=== PATIENT | female | born 1945 | race Caucasian/White ===

== ENCOUNTER → 2017-02-04 | Outpatient (CLI) | payer MEDICARE, OTHER ==
--- NOTE | 2017-02-04 11:21 | KCIC ---
MR of the left shoulder Indication: Pain, worsening over the last few months. Progressive. Technique: Standard multiplanar sequences are obtained. Findings: Acromioclavicular joint: Mildly degenerative. Rotator cuff: There is heterogeneity of the rotator cuff compatible with tendinosis. Very deep linear undersurface tear of the supraspinatus tendon, 90 percent across. Measures slightly less than 1 cm AP diameter. There is a thin intact overlying layer of bursal tissue. More generalized partial undersurface tearing of the supraspinatus and infraspinatus tendon. Partial subscapularis tendon tear. No significant subdeltoid bursal fluid. Glenohumeral cartilage: Severe primary osteoarthritis with cartilage loss and subchondral cysts. Fluid: Trace glenohumeral joint effusion. Labrum: Diffuse labral degeneration. No clear cut labral tear. Biceps tendon: Mild tendinosis. Bones: No lesion or acute fracture. Soft tissue: No acute findings. Impression: 1. Rotator cuff tendinosis. Very deep undersurface tear of the anterior supraspinatus tendon, with partial tearing through the remaining rotator cuff. 2. Severe glenohumeral joint primary osteoarthritis with labral degeneration. Electronically signed by: Yovanny Montano MD (02/04/2017 11:18 AM) [id number]
== END | disposition home or self-care (01) ==
LOC: KCIC MRI 08:30
PROVIDERS: ATTEND Physician Assistant Medical
DX: M19.012 Primary osteoarthritis, left shoulder (principal); M75.102 Unspecified rotator cuff tear or rupture of left shoulder, not specified as traumatic
CPT/HCPCS: 73221

== ENCOUNTER → 2017-10-27 | Outpatient (CLI) | payer MEDICARE, OTHER ==
--- NOTE | 2017-10-27 18:08 | KCIC ---
MRI of the lumbar spine without contrast 10/27/2017 CLINICAL HISTORY: Low back pain which radiates down the left leg. History of previous lumbar spine surgery. TECHNIQUE: Unenhanced T1-weighted and T2-weighted sagittal and axial and inversion recovery sagittal images of the lumbar spine were obtained. FINDINGS: Comparison study is dated 07/14/2009. Very mild S-shaped curvature of the thoracolumbar spine is seen. The patient is post laminectomy at L4-5 and L5-S1. The patient is post fusion using pedicle screws and stabilizing rods extending from L4 to S1. Bone graft material is seen within the L4-5 and L5-S1 disc spaces. Degenerative signal changes are seen involving the remaining discs of the lumbar spine. Degenerative signal changes are seen within the marrow surrounding these discs. The conus medullaris is normal in morphology, position, and signal characteristics. The L1-2 and L2-3 disc spaces there are mild generalized disc bulges. Degenerative changes are seen involving the facet joints bilaterally. These findings do not result in significant central spinal canal or neural foraminal stenosis. At the L3-4 disc space there is a mild to moderate generalized disc bulge. Degenerative changes are seen involving the facet joints bilaterally. There are moderate sized facet joint effusions bilaterally. Mild to moderate ligamentum flavum hypertrophy is seen bilaterally. These findings when combined result in moderate to severe central spinal canal stenosis. Mild to moderate bilateral neural foraminal stenosis is seen. At the L4-5 and L5-S1 levels postsurgical changes are seen as outlined above. Degenerative changes are seen involving the facet joints bilaterally. These findings do not result in significant central spinal canal or neural foraminal stenosis. IMPRESSION: 1. Post laminectomy and fusion at L4-5 and L5-S1. 2. The changes of degenerative disc disease are seen involving the lumbar spine. These findings result in moderate to severe central spinal canal stenosis with mild to moderate bilateral neural foraminal stenosis at L3-4. Electronically signed by: Marcos Castañeda MD (10/27/2017 6:04 PM) [facility]-KCIC1
== END | disposition home or self-care (01) ==
LOC: KCIC MRI 12:26
PROVIDERS: ATTEND Physician Assistant Medical
DX: M48.061 Spinal stenosis, lumbar region without neurogenic claudication (principal); M43.27 Fusion of spine, lumbosacral region
CPT/HCPCS: 72148

== ENCOUNTER 2018-07-22 15:49 | Inpatient (IN) | payer MEDICARE, OTHER ==
[~2018-07-22] VITALS: Ht 167.6 cm; Wt 99.9 kg
[2018-07-22 18:21] VITALS: BP 159/73
[2018-07-22] MEDS: IV NORMAL SALINE 1000ML BAG 1,000 ML IV SCH ×2 (18:23→19:00)
[2018-07-22] MEDS ORDERED: ACETAMINOPHEN 325 MG TABLET. PO PRN (18:30)
[2018-07-22] MEDS ORDERED: 0.9 % SODIUM CHLORIDE 10 ML DISP.SYRIN. IV PRN (18:30)
[2018-07-22] MEDS ORDERED: diphenhydrAMINE HCL 25 MG CAPSULE PO PRN (18:30)
[2018-07-22] MEDS ORDERED: ASPI81TA50 PO (18:42)
[2018-07-22] MEDS ORDERED: CITA20TA9 PO (18:44)
[2018-07-22] MEDS ORDERED: LISI10TA2 PO (18:51)
[2018-07-22] MEDS ORDERED: ONDA4TAB7 PO (18:51)
[2018-07-22] MEDS ORDERED: LEVO75TA PO (18:51)
[2018-07-22] MEDS ORDERED: PANT20TA2 PO (18:51)
[2018-07-22] MEDS ORDERED: GABA600T PO (18:51)
[2018-07-22] MEDS ORDERED: OXYC1TAB15 PO (18:51)
[2018-07-22] MEDS ORDERED: NITR100C62 PO (18:51)
[2018-07-22] MEDS ORDERED: PROC10TA57 PO (18:51)
[2018-07-22] MEDS ORDERED: MONT10TA9 PO (18:51)
[2018-07-22] MEDS ORDERED: CYCL1DRO EACHEYE (18:51)
[2018-07-22] MEDS ORDERED: LEVO5TAB2 PO (18:51)
[2018-07-22 18:53] LABS: BASO % 1 % (0-3); EOS % 0 % (0-3); HEMATOCRIT 28.5 % (36.0-47.0); HEMOGLOBIN 9.1 g/dL (12.0-15.5); LYMPH # 0.4 x10^3/uL (1.0-4.8); LYMPH % 7 % (24-48); MEAN CORPUSCULAR HEMOGLOBIN 28 pg (25-35); MEAN CORPUSCULAR HGB CONC 32 g/dL (31-37); MEAN CORPUSCULAR VOLUME 88 fL (79-100); MONO # 0.1 x10^3/uL (0.0-1.1); MONO % 2 % (0-9); NEUT # 4.7 x10^3uL (1.8-7.7); NEUT % 90 % (31-73); PLATELET COUNT 152 x10^3/uL (140-400); RED BLOOD COUNT 3.26 x10^6/uL (3.50-5.40); RED CELL DISTRIBUTION WIDTH 15.8 % (11.5-14.5); WHITE BLOOD COUNT 5.2 x10^3/uL (4.0-11.0)
[2018-07-22] MEDS ORDERED: tiZANidine 4 MG TABLET. PO PRN (19:00)
[2018-07-22] MEDS ORDERED: ONDANSETRON PF 4 MG/2 ML VIAL. IV PRN (19:00)
[2018-07-22] MEDS ORDERED: PROMETHAZINE 25 MG SUPP.RECT. PR PRN (19:00)
--- NOTE | 2018-07-22 19:01 | NUR ---
Patient of Dr Luz's transfer from [facility] at 1755 to room 115. Patient came with orders. Orders were placed. Head to toe assessment done. Patient in no apparent distress, VS wnl on RA. Report given to night nurse Eugene Hairston
[2018-07-22 19:03] LABS: CALCIUM 8.4 mg/dL (8.5-10.1); CREATININE 1.3 mg/dL (0.6-1.0); GFR 40.4; POTASSIUM 5.2 mmol/L (3.5-5.1)
[2018-07-22 19:16] LABS: % BANDS 2 % (0-9); % BASOS 1 % (0-3); % LYMPHS 8 % (24-48); % METAS 3 % (0-0); % MONOS 2 % (0-10); % MYELOS 1 % (0-0); % SEGS 83 % (35-66)
[2018-07-22 19:17] LABS: PLT ESTIMATE ADEQUATE (ADEQUATE)
[2018-07-22 19:18] LABS: ANISOCYTOSIS SLIGHT
[2018-07-22] MEDS: PROCHLORPERAZINE 5 MG TABLET. PO PRN (19:52)
[2018-07-22 20:00] VITALS: BP 141/72
[2018-07-22 21:00] VITALS: BP 143/77
[2018-07-22] MEDS: GABAPENTIN 400 MG CAPSULE. PO SCH (21:20)
[2018-07-22] MEDS: CEFEPIME HCL IV Push 2 GM VIAL. IVP SCH (21:21)
[2018-07-22] MEDS: ZOLPIDEM 5 MG TABLET. PO PRN (21:21)
[2018-07-22] MEDS: MONTELUKAST SODIUM 10 MG TABLET. PO SCH (21:21)
[2018-07-22] MEDS: TOPIRAMATE 25 MG TABLET. PO SCH (21:21)
[2018-07-22] MEDS: LACTOBACILLUS RHAMNOSUS GG 1 CAPSULE. PO SCH (21:21)
[2018-07-22] MEDS: NYSTATIN TOPICAL POWDER 15GM BOTTLE. TP SCH (21:21)
[2018-07-22] MEDS: cycloSPORINE 0.05% OPHTH DROPERETTE. OU SCH (21:21)
[2018-07-22 22:00] VITALS: BP 151/81
[2018-07-22 23:00] VITALS: BP 148/70
[2018-07-22] MEDS: oxyCODONE/APAP 10/325 1 TAB TABLET PO PRN (23:23)
[2018-07-23] VITALS (18 sets, daily range): BP systolic 122–191; BP diastolic 56–89
[2018-07-23] MEDS: LEVOTHYROXINE 25 MCG TABLET. PO SCH (06:00)
[2018-07-23 06:41] LABS: CALCIUM 8.1 mg/dL (8.5-10.1); CREATININE 1.2 mg/dL (0.6-1.0); GFR 44.3; POTASSIUM 4.6 mmol/L (3.5-5.1)
[2018-07-23 07:09] LABS: BASO % 1 % (0-3); EOS # 0.2 x10^3/uL (0.0-0.7); EOS % 4 % (0-3); HEMATOCRIT 25.2 % (36.0-47.0); LYMPH % 20 % (24-48); MEAN CORPUSCULAR HEMOGLOBIN 28 pg (25-35); MEAN CORPUSCULAR HGB CONC 32 g/dL (31-37); MEAN CORPUSCULAR VOLUME 88 fL (79-100); MONO # 0.4 x10^3/uL (0.0-1.1); MONO % 8 % (0-9); NEUT # 3.2 x10^3uL (1.8-7.7); NEUT % 68 % (31-73); PLATELET COUNT 138 x10^3/uL (140-400); RED BLOOD COUNT 2.86 x10^6/uL (3.50-5.40); RED CELL DISTRIBUTION WIDTH 15.7 % (11.5-14.5); WHITE BLOOD COUNT 4.8 x10^3/uL (4.0-11.0)
[2018-07-23] MEDS: SUMAtriptan SUCCINATE 100 MG TABLET PO PRN (07:36)
[2018-07-23] MEDS: cycloSPORINE 0.05% OPHTH DROPERETTE. OU SCH ×2 (09:20→22:35)
[2018-07-23] MEDS: NYSTATIN TOPICAL POWDER 15GM BOTTLE. TP SCH ×2 (09:20→22:24)
[2018-07-23] MEDS: CEFEPIME HCL IV Push 2 GM VIAL. IVP SCH ×2 (09:20→22:24)
--- NOTE | 2018-07-23 10:05 | PDOC2 ---
GI CONSULT Reason For Consult: GI bleed HPI: HPI: 73 y/o female transferred from [facility]. Records reviewed and d/w RN and Dr. Bell. She is pleasant but says she has had "trouble finding words" lately which makes history challenging. Initially brought to ER via EMS after using life alert bracelet for weakness - was hypotensive per chart. Found to have UTI (E coli) and elevated D-dimer, then CT chest showed two tiny subsegmental pulmonary art erial filling defects in RUL and BLE Doppler was negative. I believe she was treated w/ Lovenox and Eliquis. There are no reports of obvious GI bleeding, but Hgb drifted. BUN WNL. Hemoccult was positive, iron studies were low (sat 12), and B12 was elevated. H/o some sort of gastric bypass (she says "the biggest one" - ?Emanuel shunt - our records mention [facility]-en-Y) w/ two additional surgeries soon after for complications (she says an NG tube poked a hole in something - office records indicate closure of pouch leak and revision of gastric bypass due to second pouch leak). H/o GERD on Protonix QD - at some point stopped this when she stopped Celebrex, but then restarted due to worsening reflux - timing unclear. No dysphagia. Chronic nausea - looks like on promethazine and Zofran at home? - stable. No recent vomiting. No abd pain. No diarrhea or constipation. I asked about weight loss and she gave a lot of detail about weight loss in 2008, but none recently. No hematemesis, hematochezia, or melena. On ASA 81mg for a long time, says this was increased to 325mg after back surgery in 06/2018. Also takes Percocet QD for chronic pain. S/p cholecystectomy. Denies liver or pancreas history. Thinks she was anemic a long time ago. EGD 03/2005 (Dr. Ayala): normal esophagutus, evidence of previous gastric surgical intervention w/ suture and sola int he proximal stomach and no resid ual pouch, gastritis, normal duodenum. Colonoscopy 03/2005 (Dr. Ayala): diverticulosis. EGD 09/2006 (by Dr. Boles for epigastric pain and reflux): small hiatal hernia w/ mild distal esophagitis (biopsy unremarkable), no residual gastric pouch, visible stitch in cardia of stomach. EGD 01/2009 (Dr. Lozada for n/v and abd pain): normal esophagus, suture material in stomach, no evidence of bypass surgery, mucosal erythema and edema most prominent in the antrum, normal duodenum. PMH: PMH: per HPI HTN, hypothyroidism, OA, depression/anxiety, CKD, concussion, rib fracture, bronchiectasis, hydronephrosis breast cancer s/p chemo and bilateral mastectomy, right ankle surgery, back surgery FH: Family History: No pertinent hx Social History: Smoke: No ALCOHOL: none ROS: GEN: +weakness HEENT: Denies blurred vision, sore throat CV: Denies chest pain RESP: Denies shortness of air, cough GI: Per HPI : Denies hematuria, dysuria ENDO: Denies weight changes NEURO: +confusion MSK: +chronic pain SKIN: Denies jaundice, pruritus Vitals: Vitals: Vital Signs Date Time Temp Pulse Resp B/P (MAP) Pulse Ox O2 Delivery O2 Flow Rate FiO2 07/23/18 09:00 86 18 145/81 (102) 97 Room Air 07/23/18 08:17 98.0 98.0 Labs: Labs: Laboratory Tests Test 07/22/18 18:45 07/23/18 06:15 White Blood Count 5.2 x10^3/uL (4.0-11.0) 4.8 x10^3/uL (4.0-11.0) Red Blood Count 3.26 x10^6/uL (3.50-5.40) 2.86 x10^6/uL (3.50-5.40) Hemoglobin 9.1 g/dL (12.0-15.5) 8.0 g/dL (12.0-15.5) Hematocrit 28.5 % (36.0-47.0) 25.2 % (36.0-47.0) Mean Corpuscular Volume 88 fL (79-100) 88 fL (79-100) Mean Corpuscular Hemoglobin 28 pg (25-35) 28 pg (25-35) Mean Corpuscular Hemoglobin Concent 32 g/dL (31-37) 32 g/dL (31-37) Red Cell Distribution Width 15.8 % (11.5-14.5) 15.7 % (11.5-14.5) Platelet Count 152 x10^3/uL (140-400) 138 x10^3/uL (140-400) Neutrophils (%) (Auto) 90 % (31-73) 68 % (31-73) Lymphocytes (%) (Auto) 7 % (24-48) 20 % (24-48) Monocytes (%) (Auto) 2 % (0-9) 8 % (0-9) Eosinophils (%) (Auto) 0 % (0-3) 4 % (0-3) Basophils (%) (Auto) 1 % (0-3) 1 % (0-3) Neutrophils # (Auto) 4.7 x10^3uL (1.8-7.7) 3.2 x10^3uL (1.8-7.7) Lymphocytes # (Auto) 0.4 x10^3/uL (1.0-4.8) 1.0 x10^3/uL (1.0-4.8) Monocytes # (Auto) 0.1 x10^3/uL (0.0-1.1) 0.4 x10^3/uL (0.0-1.1) Eosinophils # (Auto) 0.0 x10^3/uL (0.0-0.7) 0.2 x10^3/uL (0.0-0.7) Basophils # (Auto) 0.0 x10^3/uL (0.0-0.2) 0.0 x10^3/uL (0.0-0.2) Segmented Neutrophils % 83 % (35-66) Band Neutrophils % 2 % (0-9) Lymphocytes % 8 % (24-48) Monocytes % 2 % (0-10) Basophils % 1 % (0-3) Metamyelocytes % 3 % (0-0) Myelocytes % 1 % (0-0) Platelet Estimate Adequate (ADEQUATE) Large Platelets Occ Giant Platelets Occ Anisocytosis Slight Sodium Level 140 mmol/L (136-145) 144 mmol/L (136-145) Potassium Level 5.2 mmol/L (3.5-5.1) 4.6 mmol/L (3.5-5.1) Chloride Level 109 mmol/L (98-107) 112 mmol/L (98-107) Carbon Dioxide Level 23 mmol/L (21-32) 23 mmol/L (21-32) Anion Gap 8 (6-14) 9 (6-14) Blood Urea Nitrogen 14 mg/dL (7-20) 13 mg/dL (7-20) Creatinine 1.3 mg/dL (0.6-1.0) 1.2 mg/dL (0.6-1.0) Estimated GFR (Cockcroft-Gault) 40.4 44.3 Glucose Level 127 mg/dL (70-99) 84 mg/dL (70-99) Calcium Level 8.4 mg/dL (8.5-10.1) 8.1 mg/dL (8.5-10.1) Allergies: Coded Allergies: Penicillins (Unverified Allergy, Severe, 07/22/18) tolerates cefepime Medications: Current Medications Medications (Trade) Dose Ordered Sig/Lisbeth Route PRN Reason Start Time Stop Time Status Last Admin Dose Admin Sodium Chloride 1,000 ml @ 75 mls/hr [id number] IV 07/22/18 18:23 07/22/18 19:00 Cefepime HCl (Maxipime) 2 gm Q12HR IVP 07/22/18 21:00 07/23/18 09:20 Gabapentin (Neurontin) 600 mg BID PO 07/22/18 21:00 07/22/18 21:20 Lactobacillus Rhamnosus (Culturelle) 1 cap BID PO 07/22/18 21:00 07/22/18 21:21 Montelukast Sodium (Singulair) 10 mg QHS PO 07/22/18 21:00 07/22/18 21:21 Nystatin (Nystop) 1 chela BID TP 07/22/18 21:00 07/23/18 09:20 Prochlorperazine Maleate (Compazine) 10 mg PRN Q6HRS PRN PO NAUSEA/VOMITING 07/22/18 19:00 07/22/18 19:52 Sumatriptan Succinate (Imitrex) 100 mg PRN Q2HR PRN PO MIGRAINE HEADACHE 07/22/18 19:00 07/23/18 07:36 Topiramate (Topamax) 25 mg BID PO 07/22/18 21:00 07/22/18 21:21 Zolpidem Tartrate (Ambien) 5 mg PRN QHS PRN PO INSOMNIA, MAY REPEAT IN 1HR 07/22/18 19:00 07/22/18 21:21 Cyclosporine (Restasis) 1 drop BID OU 07/22/18 21:00 07/23/18 09:20 Oxycodone/ Acetaminophen (Percocet 10/325) 1 tab PRN Q6HRS PRN PO PAIN 07/22/18 19:00 07/22/18 23:23 Imaging: Imaging: Per HPI. PE: GEN: NAD HEENT: Atraumatic, PERRL LUNGS: CTAB HEART: RRR ABD: NABS, S/ND/NT EXTREMITY: No edema SKIN: No rashes, no jaundice NEURO/PSYCH: A & O 3 though difficulty finding words A/P: A/P: Weakness, hypotension, AMS UTI Elevated D-dimer, abnormal chest CT Anemia, +fecal occult - ?ACD, h/o CKD GERD - on PPI (?recently stopped and restarted), past EGDs as above Chronic nausea - stable H/o gastric bypass w/ complications and revisions CRC screen - can document colonoscopy in 2005 Diverticulosis S/p cholecystectomy H/o NSAID use - stopped, timing unclear Chronic pain -- Reviewed w/ Dr. Sales - try clears, observe for bleeding, monitor labs, add PPI. RICKI FLOYD July 23, 2018 10:05
--- NOTE | 2018-07-23 10:28 | PDOC ---
Provider Note Provider Note IR Asked to see patient for possible IVC filter. Found to have small focus of subsegmental PE without evidence of LE DVT. There is currently debate whether anticoagulation or observation alone is best in patient with this finding. Decreased Hb after lovenox, but no overt bleeding. Heme + stools. Given possible GI bleed, observation may be best option. Generally, IVC filter is not indicated in this setting. WILLIE GONZALEZ MD July 23, 2018 10:28
[2018-07-23] MEDS: fentaNYL PF VIAL 100 MCG/2 ML VIAL IV PRN ×3 (10:34→23:29)
[2018-07-23] MEDS ORDERED: FUROSEMIDE 40 MG/4 ML VIAL. IVP ONE (11:00)
[2018-07-23] MEDS ORDERED: PANTOPRAZOLE 40 MG TABLET.DR. PO SCH (11:00)
[2018-07-23] MEDS: DULoxetine HCL 30 MG CAPSULE.DR PO SCH (11:14)
[2018-07-23] MEDS: GABAPENTIN 400 MG CAPSULE. PO SCH (11:14)
[2018-07-23] MEDS: CITALOPRAM 10 MG TABLET. PO SCH (11:15)
[2018-07-23] MEDS: LISINOPRIL 5 MG TABLET. PO SCH (11:15)
[2018-07-23] MEDS: LACTOBACILLUS RHAMNOSUS GG 1 CAPSULE. PO SCH ×2 (11:15→20:35)
--- NOTE | 2018-07-23 11:21 | HP ---
ADMIT DATE: 07/23/2018 HISTORY OF PRESENT ILLNESS: The patient is a 73-year-old female patient who was admitted initially with altered mental status on 07/19/2018. She apparently was not feeling well and hit her Life Alert bracelet. She was noted by emergency medical service personnel to have low blood pressure of approximately 60/30. She denied any chest pain or shortness of breath. Denied any other complaint except that she was fairly weak. She was evaluated in the Emergency Room, started on IV fluid. She continued to be hypotensive, and therefore, she was started also on vasopressors. Ultimately, she was found to have urinary tract infection; however, she was found to have elevated D-dimer, and initially kidney function was impaired; however, we are unable to do a CT angio. Finally, her kidney function improved. CT angio of the chest showed that she has pulmonary emboli in her right lung. We did start her on Lovenox. Unfortunately, her H and H started dropping and her stool for occult blood was positive. In fact, on admission, her hemoglobin was 9 and hematocrit 28, and on the day of discharge from [facility], her hemoglobin dropped down to 7, hematocrit 21, although, some of it probably might be hemodilutional in nature, and given that she would require anticoagulation, decision was made to transfer her to [facility] to consult the interventional radiologist for placement of inferior vena cava filter and to consult the Gastroenterology team to elucidate for the source of GI bleed. She did grow Escherichia coli in her urine with growth of more than 100,000 colony forming units/mL. However, the sensitivity was still pending at the time of the discharge. PAST MEDICAL HISTORY: Significant for breast cancer, status post bilateral mastectomy, hypertension, hypothyroidism, gastroesophageal reflux disease, chronic kidney disease, history of concussion, rib fracture, bronchiectasis, and morbid obesity. PAST SURGICAL HISTORY: Significant for cholecystectomy, back surgery, removal of hardware and fusion of the lumbar spine and she has bilateral mastectomy. ALLERGIES: She is allergic to PENICILLIN. HOME MEDICATIONS: She is on promethazine 25 mg every 8 hours size, Xyzal 5 mg daily, nitrofurantoin monohydrate, Macrobid 100 mg twice a day. She is on anastrozole for Arimidex 1 mg tablet daily. She is on tizanidine 4 mg every 8 hours, lisinopril 10 mg daily, aspirin 325 mg daily, oxycodone/APAP for Percocet 5/325 1-2 tablets every 4-6 hours, gabapentin 600 mg twice a day, citalopram hydrobromide 20 mg daily, Cymbalta 60 mg daily. She is on Ambien 5 mg at bedtime, montelukast sodium 1 tablet p.o. daily, cyclosporine for Restasis 1 drop to both eyes twice a day, Compazine 10 mg every 6 hours, ondansetron 4 mg every 8 hours, Protonix 40 mg twice a day, levothyroxine sodium 75 mcg once a day, and alendronate sodium for Fosamax 70 mg once a week. FAMILY HISTORY: Unremarkable. SOCIAL HISTORY: She is and lives with her . She does not smoke, drink alcohol or recreational drugs. She is a retired physical therapist. She is a full code. PHYSICAL EXAMINATION: GENERAL: When I examined her today in the ICU in [facility], she was sitting, propped up in her recliner in no apparent distress. She was pale, but no jaundice, cyanosis, or thyromegaly. No jugular venous distension. No limb edema. VITAL SIGNS: Her heart rate was 85, blood pressure 149/72, temperature 98, respiratory rate 16, and oxygen saturation was 97%. HEAD, EYES, EARS, NOSE AND THROAT: Normocephalic, atraumatic. NECK: Supple. HEART: Showed normal first and second sounds. No gallop, rub or murmur. CHEST: Clear to auscultation. No crepitation or rhonchi. ABDOMEN: Distended, soft, nontender. No guarding or rigidity. No organomegaly. Hernial orifice is intact. Bowel sounds normal. NEUROLOGIC: She was awake, alert, responding appropriately. Her cranial nerves are intact. EXTREMITIES: She moves extremities without difficulty. LABORATORY DATA: On arrival yesterday showed a white cell count 5200, hemoglobin 9.1, hematocrit 28.5, MCV 88 and platelet count of 152,000. Her chemistry showed a serum sodium 140, potassium 5.2, chloride 109, bicarbonate 23, anion gap 8, BUN 14, creatinine 1.3, and estimated GFR was 40 mL per minute. Her glucose 127 and calcium was 8.4. This morning, her white cell count was 4800, hemoglobin dropped down to 8, hematocrit 25, MCV 88 and platelet count of 138,000. Her chemistry showed her serum sodium was 144, potassium 4.6, chloride 112, bicarbonate 23, anion gap 9, BUN 13, creatinine 1.2, estimated GFR was 44 mL per minute, her glucose was 84, and calcium was 8.1. PLAN: My plan is to consult the interventional radiologist to see whether she is a candidate for IVC filter and also to consult the plant director as she has had anemia. Her hemoglobin has dropped from 9 to 7 and her stool for occult blood was positive. IRINA SINGLETON MD DR: FAUSTO/brina JOB#: [id number] / [id number]
[2018-07-23] MEDS: ANASTROZOLE 1 MG TABLET PO SCH (11:22)
[2018-07-23] MEDS: TOPIRAMATE 25 MG TABLET. PO SCH ×2 (11:24→20:35)
--- NOTE | 2018-07-23 14:18 | NUR ---
SS following for discharge planning. SS reviewed pt chart. Pt was a transfer from [facility]. SS received notification that pt was screened and accepted to [facility], ; fax [phone], while at [place]. SS phoned and faxed updated clinical information to [facility]. SS will continue to follow for discharge planning.
[2018-07-23] MEDS: oxyCODONE/APAP 10/325 1 TAB TABLET PO PRN ×2 (14:27→20:36)
[2018-07-23] MEDS: PANTOPRAZOLE 40 MG TABLET.DR. PO SCH (16:05)
[2018-07-23] MEDS: MONTELUKAST SODIUM 10 MG TABLET. PO SCH (20:35)
[2018-07-23] MEDS: GABAPENTIN 300 MG CAPSULE. PO SCH (22:24)
[2018-07-24] VITALS (7 sets, daily range): BP systolic 124–182; BP diastolic 57–84
[2018-07-24] MEDS: ZOLPIDEM 5 MG TABLET. PO PRN ×2 (00:38→23:20)
[2018-07-24] MEDS: LEVOTHYROXINE 25 MCG TABLET. PO SCH (06:00)
[2018-07-24 06:40] LABS: HEMATOCRIT 25.8 % (36.0-47.0); HEMOGLOBIN 8.5 g/dL (12.0-15.5); RED BLOOD COUNT 2.92 x10^6/uL (3.50-5.40); RED CELL DISTRIBUTION WIDTH 15.3 % (11.5-14.5); WHITE BLOOD COUNT 5.2 x10^3/uL (4.0-11.0)
[2018-07-24 07:00] LABS: CALCIUM 8.1 mg/dL (8.5-10.1); CREATININE 1.3 mg/dL (0.6-1.0); GFR 40.4; POTASSIUM 4.3 mmol/L (3.5-5.1)
[2018-07-24] MEDS: PANTOPRAZOLE 40 MG TABLET.DR. PO SCH ×2 (07:30→17:11)
[2018-07-24] MEDS: SUMAtriptan SUCCINATE 100 MG TABLET PO PRN (08:31)
[2018-07-24] MEDS: LISINOPRIL 5 MG TABLET. PO SCH (08:38)
[2018-07-24] MEDS: cycloSPORINE 0.05% OPHTH DROPERETTE. OU SCH ×2 (08:38→21:40)
[2018-07-24] MEDS: CEFEPIME HCL IV Push 2 GM VIAL. IVP SCH ×2 (09:00→20:59)
[2018-07-24] MEDS: LACTOBACILLUS RHAMNOSUS GG 1 CAPSULE. PO SCH ×2 (09:00→20:59)
[2018-07-24] MEDS: GABAPENTIN 300 MG CAPSULE. PO SCH ×2 (09:00→20:59)
[2018-07-24] MEDS: NYSTATIN TOPICAL POWDER 15GM BOTTLE. TP SCH ×2 (09:00→20:59)
[2018-07-24] MEDS: oxyCODONE/APAP 10/325 1 TAB TABLET PO PRN ×2 (10:22→23:20)
--- NOTE | 2018-07-24 10:31 | PDOC2 ---
NEUROLOGY CONSULT Date of Admission Date of Admission DATE: 07/24/18 TIME: 10:30 Reason for Consult Reason for Consult: Abnormal head CT Referring Physician Referring Physician: Dr. Luz Source Source: Chart review, Patient History of Present Illness History of Present Illness The patient is a 73-year-old right-handed female who I'm asked to see regarding abnormal head CT. She was originally admitted to [facility] on 07/19 with altered mental status. She had not been feeling well for several days and hit her life alert bracelet stop emergency personnel found blood pressure 60/30. She was given IV fluid in the intensive care unit. She was found to have urinary tract infection, but also had elevated d-dimer and impaired renal function. She had a small pulmonary embolus on CT angiogram of the chest and was started on Lovenox, but her hemoglobin fell and she had positive occult blood. She was transferred here for further GI workup. The patient did see Dr. Saldivar as well at [facility]. He diagnosed chronic migraine headaches with left-sided throbbing pain with nausea, vomiting, and photo phonophobia. He started the patient on Topamax. The patient has had some language problems at least today and cannot tell me when th is started. Dr. Saldivar just saw the patient yesterday and noted no language problems. Patient denies any history of stroke, seizure, but has had a concussion. The head CT as reviewed below shows some fat deposits in the ventricles and the radiologist raised the possibility of spine or other neurosurgery causing this. Indeed, the patient had lumbar fusion just a month ago. She went to rehabilitation after that. She has been getting around with a walker since then. Nursing notes state there is a history of brain tumor, patient knows of no such history. Past Medical History Cardiovascular: HTN Pulmonary: Other ( bronchiectisis) GI: GERD Heme/Onc: Cancer (breast) Renal/: Chronic renal insuff Endocrine: Hypothyroidism Past Surgical History Past Surgical History: Cholecystectomy, Mastectomy, Other (lumbar, right ankle, gastric bypass) Family History Family History: No pertinent hx Social History Social History , lives alone, no alcohol or tobacco Current Medications Current Medications Current Medications Sodium Chloride (Normal Saline Flush) 3 ml QSHIFT PRN IV AFTER MEDS AND BLOOD DRAWS; Start 07/22/18 at 18:30 Sodium Chloride 1,000 ml @ 75 mls/hr [id number] IV Last administered on 07/22/18 19:00; Start 07/22/18 at 18:23; Stop 07/23/18 at 10:56; Status DC Acetaminophen (Tylenol) 650 mg 1X PRN PRN PO PRE-TRANSFUSION; Start 07/22/18 at 18:30 Diphenhydramine HCl (Benadryl) 25 mg PRN 1X PRN PO PRE-TRANSFUSION; Start 07/22/18 at 18:30 Cefepime HCl (Maxipime) 2 gm Q12HR IVP Last administered on 07/23/18 22:24; Start 07/22/18 at 21:00 Citalopram Hydrobromide (CeleXA) 10 mg DAILY PO Last administered on 07/23/18 11:15; Start 07/23/18 at 09:00 Duloxetine HCl (Cymbalta) 60 mg DAILY PO Last administered on 07/23/18 11:14; Start 07/23/18 at 09:00 Gabapentin (Neurontin) 600 mg BID PO Last administered on 07/23/18 11:14; Start 07/22/18 at 21:00; Stop 07/23/18 at 20:32; Status DC Lactobacillus Rhamnosus (Culturelle) 1 cap BID PO Last administered on 07/23/18 20:35; Start 07/22/18 at 21:00 Levothyroxine Sodium (Synthroid) 25 mcg DAILY06 PO ; Start 07/23/18 at 06:00 Lisinopril (Prinivil) 2.5 mg DAILY PO Last administered on 07/24/18at 08:38; Start 07/23/18 at 09:00 Montelukast Sodium (Singulair) 10 mg QHS PO Last administered on 07/23/18 20:35; Start 07/22/18 at 21:00 Nystatin (Nystop) 1 chela BID TP Last administered on 07/23/18 22:24; Start 07/22/18 at 21:00 Ondansetron HCl (Zofran) 4 mg PRN Q6HRS PRN IV NAUSEA/VOMITING; Start 07/22/18 at 19:00 Prochlorperazine Maleate (Compazine) 10 mg PRN Q6HRS PRN PO NAUSEA/VOMITING Last administered on 07/22/18 19:52; Start 07/22/18 at 19:00 Promethazine HCl (Phenergan Supp) 25 mg PRN Q6HRS PRN NV NAUSEA/VOMITING; Start 07/22/18 at 19:00 Sumatriptan Succinate (Imitrex) 100 mg PRN Q2HR PRN PO MIGRAINE HEADACHE Last administered on 07/24/18 08:31; Start 07/22/18 at 19:00 Topiramate (Topamax) 25 mg BID PO Last administered on 07/23/18 20:35; Start 07/22/18 at 21:00 Zolpidem Tartrate (Ambien) 5 mg PRN QHS PRN PO INSOMNIA, MAY REPEAT IN 1HR Last administered on 07/24/18 00:38; Start 07/22/18 at 19:00 Cyclosporine (Restasis) 1 drop BID OU Last administered on 07/24/18 08:38; Start 07/22/18 at 21:00 Fentanyl Citrate (Fentanyl 2ml Vial) 50 mcg PRN Q3HRS PRN IV PAIN Last administered on 07/23/18 23:29; Start 07/22/18 at 19:00 Oxycodone/ Acetaminophen (Percocet 10/325) 1 tab PRN Q6HRS PRN PO PAIN Last administered on 07/24/18 10:22; Start 07/22/18 at 19:00 Tizanidine HCl (Zanaflex) 4 mg PRN Q8HRS PRN PO MUSCLE SPASMS; Start 07/22/18 at 19:00 Anastrozole (Arimidex) 1 mg DAILY PO Last administered on 07/23/18 11:22; Start 07/23/18 at 09:00 Pantoprazole Sodium (Protonix) 40 mg DAILYAC PO ; Start 07/23/18 at 11:00; Stop 07/23/18 at 11:00; Status DC Pantoprazole Sodium (Protonix) 40 mg BIDAC PO Last administered on 07/23/18 16:05; Start 07/23/18 at 16:30 Furosemide (Lasix) 40 mg 1X ONCE IVP Last administered on 07/23/18 11:14; Start 07/23/18 at 11:00; Stop 07/23/18 at 11:03; Status DC Gabapentin (Neurontin) 600 mg BID PO Last administered on 07/23/18at 22:24; Start 07/23/18 at 21:00 Active Scripts Active Reported Compazine (Prochlorperazine Maleate) 10 Mg Tablet 10 Mg PO PRN Q6-8HRS PRN Protonix (Pantoprazole Sodium) 20 Mg Tablet.dr 40 Mg PO DAILY Percocet 5-325 Mg Tablet (Oxycodone/Acetaminophen) 1 Each Tablet 1 Tab PO PRN Q6HRS PRN Zofran (Ondansetron Hcl) 4 Mg Tablet 1 Tab PO PRN Q6-8HRS Macrobid 100 Mg Capsule (Nitrofurantoin Monohyd/M-Cryst) 100 Mg Capsule 1 Cap PO BID Montelukast Sodium Tablet (Montelukast Sodium) 10 Mg Tablet 1 Tab PO DAILY Lisinopril 10 Mg Tablet 1 Tab PO DAILY Synthroid (Levothyroxine Sodium) 75 Mcg Tablet 1 Tab PO DAILY Levocetirizine Dihydrochloride 5 Mg Tablet 1 Tab PO DAILY Neurontin (Gabapentin) 600 Mg Tablet 600 Mg PO BID Restasis (Cyclosporine) 1 Each Droperette 1 Drop EACHEYE BID Celexa (Citalopram Hydrobromide) 20 Mg Tablet 1 Tab PO DAILY Aspir-Low (Aspirin) 81 Mg Tablet. 1 Tab PO DAILY Allergies Allergies: Coded Allergies: Penicillins (Unverified Allergy, Severe, 07/22/18) tolerates cefepime ROS Review of System Negative for fever, chills, weight loss, shortness of breath, chest pain, indigestion, hematochezia, melena, and dysuria. Full 14-point review of systems is negative. Physical Exam Physical Examination General: Well-developed, well-nourished white female in no acute distress HEENT: Normocephalic andatraumatic. Tympanic membranes clear.Temporal arteriespulsatile and nontender.Fundoscopic exam unremarkable Neck: Supple without bruit, no meningismus Musculoskeletal: Stability:see neurologic. Gait exam:see neurologic. Tone:see neurologic.Strength:see neurologic. Neurological: Mental Status:orientation, memory, attention span/concentration,fund of knowledge normal. But there is a strange language problem. The patient has hesitancy of speech, but is fluent when she tries to name and repeat. She becomes very tearful and upset. Cranial Nerves:Pupils equal and reactive to light, extraocular movements areintact, visual serrano are full to confrontation. Facial sensation is normal. There is no facial asymmetry. Vestibulo-ocular reflex is intact. Palate elevates and tongue protrudes in midline. All other cranial related problems are negative except as mentioned before.Reflexes:2+ and symmetric with flexor plantar responses. Motor:5/5 strength with normal tone and bulk. Coordination:Finger-nose finger and howa-jc-ueik testing are normal. Rapid alternating movements and fine finger mo vements are intact. Gait not tested. Sensory:Normal pinprick, vibration, light touch, proprioception. Vitals VITALS Vital Signs Date Time Temp Pulse Resp B/P (MAP) Pulse Ox O2 Delivery O2 Flow Rate FiO2 07/24/18 10:22 Room Air 07/24/18 08:38 95 150/80 07/24/18 07:00 99.5 18 96 99.5 Labs Labs Laboratory Tests Test 07/22/18 18:45 07/23/18 06:15 07/24/18 06:30 White Blood Count 5.2 x10^3/uL (4.0-11.0) 4.8 x10^3/uL (4.0-11.0) 5.2 x10^3/uL (4.0-11.0) Red Blood Count 3.26 x10^6/uL (3.50-5.40) 2.86 x10^6/uL (3.50-5.40) 2.92 x10^6/uL (3.50-5.40) Hemoglobin 9.1 g/dL (12.0-15.5) 8.0 g/dL (12.0-15.5) 8.5 g/dL (12.0-15.5) Hematocrit 28.5 % (36.0-47.0) 25.2 % (36.0-47.0) 25.8 % (36.0-47.0) Mean Corpuscular Volume 88 fL (79-100) 88 fL (79-100) 88 fL (79-100) Mean Corpuscular Hemoglobin 28 pg (25-35) 28 pg (25-35) 29 pg (25-35) Mean Corpuscular Hemoglobin Concent 32 g/dL (31-37) 32 g/dL (31-37) 33 g/dL (31-37) Red Cell Distribution Width 15.8 % (11.5-14.5) 15.7 % (11.5-14.5) 15.3 % (11.5-14.5) Platelet Count 152 x10^3/uL (140-400) 138 x10^3/uL (140-400) 137 x10^3/uL (140-400) Neutrophils (%) (Auto) 90 % (31-73) 68 % (31-73) Lymphocytes (%) (Auto) 7 % (24-48) 20 % (24-48) Monocytes (%) (Auto) 2 % (0-9) 8 % (0-9) Eosinophils (%) (Auto) 0 % (0-3) 4 % (0-3) Basophils (%) (Auto) 1 % (0-3) 1 % (0-3) Neutrophils # (Auto) 4.7 x10^3uL (1.8-7.7) 3.2 x10^3uL (1.8-7.7) Lymphocytes # (Auto) 0.4 x10^3/uL (1.0-4.8) 1.0 x10^3/uL (1.0-4.8) Monocytes # (Auto) 0.1 x10^3/uL (0.0-1.1) 0.4 x10^3/uL (0.0-1.1) Eosinophils # (Auto) 0.0 x10^3/uL (0.0-0.7) 0.2 x10^3/uL (0.0-0.7) Basophils # (Auto) 0.0 x10^3/uL (0.0-0.2) 0.0 x10^3/uL (0.0-0.2) Segmented Neutrophils % 83 % (35-66) Band Neutrophils % 2 % (0-9) Lymphocytes % 8 % (24-48) Monocytes % 2 % (0-10) Basophils % 1 % (0-3) Metamyelocytes % 3 % (0-0) Myelocytes % 1 % (0-0) Platelet Estimate Adequate (ADEQUATE) Large Platelets Occ Giant Platelets Occ Anisocytosis Slight Sodium Level 140 mmol/L (136-145) 144 mmol/L (136-145) 142 mmol/L (136-145) Potassium Level 5.2 mmol/L (3.5-5.1) 4.6 mmol/L (3.5-5.1) 4.3 mmol/L (3.5-5.1) Chloride Level 109 mmol/L (98-107) 112 mmol/L (98-107) 110 mmol/L (98-107) Carbon Dioxide Level 23 mmol/L (21-32) 23 mmol/L (21-32) 24 mmol/L (21-32) Anion Gap 8 (6-14) 9 (6-14) 8 (6-14) Blood Urea Nitrogen 14 mg/dL (7-20) 13 mg/dL (7-20) 13 mg/dL (7-20) Creatinine 1.3 mg/dL (0.6-1.0) 1.2 mg/dL (0.6-1.0) 1.3 mg/dL (0.6-1.0) Estimated GFR (Cockcroft-Gault) 40.4 44.3 40.4 Glucose Level 127 mg/dL (70-99) 84 mg/dL (70-99) 84 mg/dL (70-99) Calcium Level 8.4 mg/dL (8.5-10.1) 8.1 mg/dL (8.5-10.1) 8.1 mg/dL (8.5-10.1) Laboratory Tests Test 07/24/18 06:30 White Blood Count 5.2 x10^3/uL (4.0-11.0) Red Blood Count 2.92 x10^6/uL (3.50-5.40) Hemoglobin 8.5 g/dL (12.0-15.5) Hematocrit 25.8 % (36.0-47.0) Mean Corpuscular Volume 88 fL (79-100) Mean Corpuscular Hemoglobin 29 pg (25-35) Mean Corpuscular Hemoglobin Concent 33 g/dL (31-37) Red Cell Distribution Width 15.3 % (11.5-14.5) Platelet Count 137 x10^3/uL (140-400) Sodium Level 142 mmol/L (136-145) Potassium Level 4.3 mmol/L (3.5-5.1) Chloride Level 110 mmol/L (98-107) Carbon Dioxide Level 24 mmol/L (21-32) Anion Gap 8 (6-14) Blood Urea Nitrogen 13 mg/dL (7-20) Creatinine 1.3 mg/dL (0.6-1.0) Estimated GFR (Cockcroft-Gault) 40.4 Glucose Level 84 mg/dL (70-99) Calcium Level 8.1 mg/dL (8.5-10.1) Images Images CT HEAD WITHOUT CONTRAST, 07/19, [facility] HISTORY: Headache, dizziness, altered mental status. TECHNIQUE: Computed tomography of the head was performed without intravenous contrast. COMPARISON: 07/02/2017. FINDINGS: There is no intracranial hemorrhage. Coates-white differentiation is preserved. The ventricles are normal in size and position. Small foci of fat density is noted nondependently and both lateral ventricular frontal horns. There is an mucus retention cyst in the left posterior ethmoid air cells. There are changes of bilateral cataract surgery. The temporal bones are unremarkable. The calvarium reveals no suspicious lesions. IMPRESSION: 1. New small foci of fat dependently within the lateral ventricles may introduction of fat into the CSF from prior spinal surgery or other instrumentation. Otherwise, ruptured dermoid/epidermoid somewhere along the neuraxis could produce this appearance and chronic headaches. Correlate with other clinical data. 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 This can be a side effect of topiramate. This is not a typical case of aphasia and I do not think the patient has had a stroke. Gait disorder following lumbar spine surgery and she has had several back surgeries before. Recommendations: MRI of the brain I do not think that she needs any type of neurosurgery intervention regarding the fat in the ventricles as migraines have been long-standing. Speech therapy evaluation Discontinue topiramate Reassurance offered I left a message with the patient's daughter. Thank you for letting me help with the patient's care. DIEGO JO MD July 24, 2018 10:30
[2018-07-24] MEDS ORDERED: PROPOFOL 20 ML IV ONE (13:11)
--- NOTE | 2018-07-24 13:34 | PDOC4 ---
PROCEDURE Procedure EGD Indication: Anemia, heme positive, h/o gastric surgery, recent NSAID use Meds: per anesthesia Findings: E--Grade A reflux atcm. G--Deformed fundus c/w prior lawrence-en-Y with visible suture, otherwise normal. D--Normal to second portion. Peña. well. IMP: Prior gastric surgery Mild reflux. REC: Continue PPI. OK to feed. Consider outpatient colonoscopy. Thanks. GIN MCCRAY MD July 24, 2018 13:34
--- NOTE | 2018-07-24 14:05 | NUR ---
Wound Care Wound care consult for burn to left upper buttock from heating pad. Pt was seen by WC team on Friday at [facility]. Cleansed area and applied Medihoney alginate and foam dressing to be changed every 3 days. No other wounds found on full skin inspection. WC will continue to follow for possible changes. Pt wound benefit from follow up in [facility] on discharge.
[2018-07-24] MEDS: CITALOPRAM 10 MG TABLET. PO SCH (15:11)
[2018-07-24] MEDS: DULoxetine HCL 30 MG CAPSULE.DR PO SCH (15:11)
[2018-07-24] MEDS: ANASTROZOLE 1 MG TABLET PO SCH (15:13)
--- NOTE | 2018-07-24 16:59 | RAD ---
MRI of the brain without contrast 07/24/2018 Clinical History: Aphasia. Technique: Unenhanced T1-weighted sagittal and axial, T2-weighted axial and coronal and FLAIR, gradient echo and diffusion-weighted axial images of the brain were obtained. Findings: Comparison is made to patient's CT scan of the head dated 07/19/2018. There is generalized parenchymal atrophy. Patchy and a few small scattered areas of increased signal intensity are seen within the periventricular and subcortical white matter of both cerebral hemispheres on the FLAIR and T2-weighted images consistent with areas of minimal small vessel ischemic disease. Small areas of fat signal intensity are seen within the frontal horns of both lateral ventricles, unchanged. No acute parenchymal abnormality is seen. No extra-axial fluid collection is seen. There is no MRI evidence of acute ischemia/infarction. Mild to moderate mucosal thickening is seen scattered throughout the paranasal sinuses. There is a minimal right mastoid effusion. A small left mastoid effusion is seen. Normal flow voids are seen within the major vascular structures surrounding the brain parenchyma. Impression: No acute parenchymal abnormality is seen. Electronically signed by: Marcos Castañeda MD (07/24/2018 4:56 PM) [id number]
[2018-07-24] MEDS: fentaNYL PF VIAL 100 MCG/2 ML VIAL IV PRN ×2 (18:41→21:40)
[2018-07-24] MEDS: MONTELUKAST SODIUM 10 MG TABLET. PO SCH (20:59)
--- NOTE | 2018-07-24 23:07 | PN ---
DATE: 07/24/2018 SUBJECTIVE: The patient is resting slightly propped up in bed, in no apparent distress. She apparently was seen yesterday by Dr. Sales who decided to do upper GI endoscopy. She continued to complain of headache and her Imitrex caused some form of expressive aphasia according to her. PHYSICAL EXAMINATION: GENERAL: When I examined her this morning, she was pale, no jaundice, no cyanosis, no lymphadenopathy, no thyromegaly. No jugular venous distension. No lower limb edema. VITAL SIGNS: Her heart rate was 95, blood pressure was 150/80, temperature was 99.5, respiratory rate was 18 and oxygen saturation was 96%. HEAD, EYES, EARS, NOSE AND THROAT: Normocephalic, atraumatic. NECK: Supple. HEART: Showed normal first and second heart sounds. No gallop, rub or murmur. CHEST: Clear to auscultation. No crepitation or rhonchi. ABDOMEN: Distended, soft, nontender. NEUROLOGIC: She is awake, alert, responding appropriately. All cranial nerves intact. She moves extremities without difficulty. She ambulates without assistance or assistive devices. Her intake over the last 24 hours was 495, output was 975. LABORATORY DATA: Her lab work this morning showed a white cell count 5200, hemoglobin 8.5, hematocrit 25.8, MCV 88 and platelet count of 137,000. Her serum sodium was 142, potassium 4.3, chloride 110, bicarbonate 24, anion gap of 8, BUN 13, creatinine 1.3, estimated GFR was 40 mL per minute. Her glucose was 84, calcium was 8.1. ASSESSMENT: 1. In summary, this is a 73-year-old female patient who was transferred from [facility] where she was admitted with sepsis secondary to urinary tract infection. 2. D-dimer was elevated and CT angio of the chest showed that she has pulmonary emboli in the right upper lobe. She also had blood loss anemia with positive blood in her stool. She has also severe headache and finding of some fat in her CSF on her most recent CT scan. PLAN: To proceed obviously with upper GI endoscopy, I have consulted Dr. Donovan about her headache and abnormal finding in the CSF. IRINA SINGLETON MD DR: FAUSTO/brina JOB#: [id number] / [id number]
[2018-07-25] MEDS: fentaNYL PF VIAL 100 MCG/2 ML VIAL IV PRN ×5 (03:04→22:02)
[2018-07-25 03:19] VITALS: BP 135/74
[2018-07-25] MEDS: LEVOTHYROXINE 25 MCG TABLET. PO SCH (06:30)
[2018-07-25] MEDS: oxyCODONE/APAP 10/325 1 TAB TABLET PO PRN ×3 (06:33→20:49)
[2018-07-25 07:00] VITALS: BP 144/72
[2018-07-25 07:03] LABS: HEMATOCRIT 27.3 % (36.0-47.0); HEMOGLOBIN 8.9 g/dL (12.0-15.5); RED BLOOD COUNT 3.13 x10^6/uL (3.50-5.40); RED CELL DISTRIBUTION WIDTH 15.1 % (11.5-14.5); WHITE BLOOD COUNT 6.5 x10^3/uL (4.0-11.0)
[2018-07-25 07:06] LABS: ALBUMIN 2.4 g/dL (3.4-5.0); ALBUMIN/GLOBULIN RATIO 0.7 (1.0-1.7); CALCIUM 8.2 mg/dL (8.5-10.1); CREATININE 1.3 mg/dL (0.6-1.0); GFR 40.4; TOTAL BILIRUBIN 0.3 mg/dL (0.2-1.0)
[2018-07-25] MEDS: CEFEPIME HCL IV Push 2 GM VIAL. IVP SCH (09:00)
[2018-07-25] MEDS: NYSTATIN TOPICAL POWDER 15GM BOTTLE. TP SCH ×2 (09:06→20:49)
[2018-07-25] MEDS: cycloSPORINE 0.05% OPHTH DROPERETTE. OU SCH ×2 (09:06→20:49)
[2018-07-25] MEDS: LACTOBACILLUS RHAMNOSUS GG 1 CAPSULE. PO SCH ×2 (09:06→20:49)
[2018-07-25] MEDS: GABAPENTIN 300 MG CAPSULE. PO SCH ×2 (09:07→20:49)
[2018-07-25] MEDS: PANTOPRAZOLE 40 MG TABLET.DR. PO SCH ×2 (09:07→16:39)
[2018-07-25] MEDS: DULoxetine HCL 30 MG CAPSULE.DR PO SCH (09:07)
[2018-07-25] MEDS: CITALOPRAM 10 MG TABLET. PO SCH (09:08)
[2018-07-25] MEDS: LISINOPRIL 5 MG TABLET. PO SCH (09:15)
[2018-07-25] MEDS: ANASTROZOLE 1 MG TABLET PO SCH (09:26)
[2018-07-25 11:00] VITALS: BP 136/61
--- NOTE | 2018-07-25 12:11 | NUR ---
Communication evaluation completed. Please refer to full report for additional information. Also note pt had headache during evaluation. Impressions: Mild cognitive and language impairments. Confrontational naming grossly intact, however consistent deficits w/ divergent naming. Auditory comprehension breakdown w/ complex directions and paragraph information. Immediate memory, repetition, and orientation WFL. Cognitive deficits w/ attention, sequencing, delayed recall, clock task and time, and excess time for math tasks. Pt presents at times w/ more fluent to overly verbose speech in which she adds extraneous/off topic information, but then having periods of decreased fluency, circumlocutory speech w/ word-finding impairments. Decreased fluency consistently noted when pt sequencing tasks or events, and when attempting detailed long explanations w/ decreased attention/loss of train of thought contributing to decreased fluency as well as word-finding errors in these situations. While pt had headache during evaluation pt reports similar difficulties and frustration when she is not having headaches. Pt scored 17/30 on SLUMS and 90 (100=normal) on Western Aphasia Battery-R score. Recommendations: ST f/u for cognitive and language impairments. If deficits do not resolve during hospital stay would recommend ST services at discharge.
[2018-07-25 14:34] VITALS: BP 124/55
[2018-07-25] MEDS: PROCHLORPERAZINE 5 MG TABLET. PO PRN (15:11)
[2018-07-25] MEDS: MONTELUKAST SODIUM 10 MG TABLET. PO SCH (20:48)
[2018-07-25 21:00] VITALS: BP 90/43
[2018-07-25 23:33] VITALS: BP 101/54
[2018-07-25] MEDS: ZOLPIDEM 5 MG TABLET. PO PRN (23:35)
[2018-07-26] VITALS (7 sets, daily range): BP systolic 99–143; BP diastolic 58–84
--- NOTE | 2018-07-26 01:56 | PN ---
DATE: 07/25/2018 SUBJECTIVE: The patient is resting slightly propped up in bed, in no apparent respiratory distress. She is awake, alert, continued to complain of severe headache and also swelling of both legs. Denied any chest pain or shortness of breath. She has had her upper GI endoscopy done yesterday and it did show that the patient has grade A reflux esophagitis, deformed fundus consistent with prior Clay-en-Y with visible sutures and otherwise normal. The duodenum was normal to the second portion. The plan is to continue with the proton pump inhibitor. Her diet was advanced and the preschool principal recommended considering outpatient colonoscopy. Regarding the finding in her CT scan of fat deposits in her ventricles, she was seen by Dr. Escobedo and he did order an MRI. She also complained of having difficulty finding words and basically the MRI again showed that the patient has small areas of fat signal intensity seen within the frontal horns of both lateral ventricles unchanged, but there is no acute parenchymal abnormality seen. No extraaxial fluid collection is seen. There is no MRI evidence of acute ischemia or infarction. The patient does have a [id number] mucosal thickening seen scattered throughout the paranasal sinuses. There is minimal right mastoid effusion and small left mastoid effusion is seen. Normal flow voids are seen within the major vascular structures surrounding the brain parenchyma. Unfortunately, the patient cannot be accepted in the intermediate today, so we will continue basically with her current medication. I will also order IV Lasix as she continued to have problems with marked swollen legs and the plan to discharge her back to [place] on Friday. PHYSICAL EXAMINATION: GENERAL: When I examined her this morning, she looked well and was clearly in no apparent respiratory distress. She was pale, but no jaundice, cyanosis or thyromegaly. No jugular venous distension. No lower limb edema. VITAL SIGNS: Her heart rate was 96, blood pressure 144/72, temperature was 98.6, respiratory rate was 16, and oxygen saturation was 95% on room air. HEAD, EYES, EARS, NOSE AND THROAT: Showed normocephalic and atraumatic. NECK: Supple. HEART: Showed normal first and second sounds. No gallop, rub or murmur. CHEST: Clear to auscultation. No crepitation or rhonchi. ABDOMEN: Distended, soft and nontender. No guarding or rigidity. No organomegaly. All hernial orifices are intact. Bowel sounds are normal. NEUROLOGIC: She was awake, alert and responding appropriately. All cranial nerves are intact. She moves extremities without difficulty. She ambulates without assistance or assistive devices. Her intake over the last 24 hours was 2000 and output was 5000. LABORATORY DATA: Her lab work this morning showed serum sodium of 142, potassium 4, chloride 108, bicarbonate 25, anion gap of 9, BUN 13, creatinine 1.3, estimated GFR was 40 mL per minute, her glucose was 94 and calcium was 8.2. Total bilirubin, AST and ALT were normal. Alkaline phosphatase was slightly elevated. Total protein was 6 and albumin was 2.4. Her white cell count was 6500, hemoglobin 8.9, hematocrit 27.3, MCV 87 and platelet count of 143,000. ASSESSMENT: 1. Sepsis secondary to urinary tract infection. 2. Elevated D-dimer and CT angio of the chest showed that the patient has pulmonary emboli in the right upper lobe. 3. She had blood loss anemia with positive blood in her stool. 4. She also has severe headache and finding of some fat in her CSF on her most recent CT scan. She does have recent back surgery done by an orthopedic surgeon at [facility]. PLAN: To continue with IV antibiotic. Continue with proton pump inhibitor. Continue with physical and occupational therapy. Her upper GI endoscopy was unremarkable. MRI of the brain also showed the same findings with no evidence of any ischemia or infarct. My plan is to continue with physical and occupational therapy. We will discharge her on Friday morning to [facility]. IRINA SINGLETON MD DR: FAUSTO/brina JOB#: [id number] / [id number]
[2018-07-26] MEDS: fentaNYL PF VIAL 100 MCG/2 ML VIAL IV PRN ×2 (06:13→21:32)
[2018-07-26] MEDS: LEVOTHYROXINE 25 MCG TABLET. PO SCH (06:20)
[2018-07-26] MEDS: PANTOPRAZOLE 40 MG TABLET.DR. PO SCH ×2 (07:39→16:23)
[2018-07-26] MEDS: NYSTATIN TOPICAL POWDER 15GM BOTTLE. TP SCH ×2 (09:01→21:35)
[2018-07-26] MEDS: CITALOPRAM 10 MG TABLET. PO SCH (09:01)
[2018-07-26] MEDS: DULoxetine HCL 30 MG CAPSULE.DR PO SCH (09:01)
[2018-07-26] MEDS: cycloSPORINE 0.05% OPHTH DROPERETTE. OU SCH ×2 (09:01→21:00)
[2018-07-26] MEDS: LACTOBACILLUS RHAMNOSUS GG 1 CAPSULE. PO SCH ×2 (09:01→21:32)
[2018-07-26] MEDS: LISINOPRIL 5 MG TABLET. PO SCH (09:02)
[2018-07-26] MEDS: ANASTROZOLE 1 MG TABLET PO SCH (09:03)
[2018-07-26] MEDS: GABAPENTIN 300 MG CAPSULE. PO SCH ×2 (09:04→21:32)
[2018-07-26] MEDS: oxyCODONE/APAP 10/325 1 TAB TABLET PO PRN (09:05)
[2018-07-26] MEDS: DOCUSATE SODIUM 100 MG CAPSULE. PO SCH ×2 (09:25→21:32)
[2018-07-26] MEDS ORDERED: POLYETHYLENE GLYCOL 3350 17 GM PACKET. PO SCH ×2 (09:30→21:00)
[2018-07-26] MEDS ORDERED: FUROSEMIDE 40 MG/4 ML VIAL. IVP ONE (09:30)
--- NOTE | 2018-07-26 20:00 | PN ---
DATE: 07/26/2018 SUBJECTIVE: The patient is sitting at the edge of the bed comfortably, in no apparent distress, had overall good night's sleep. No more headache. She has been up and about, walking with Physical Therapy with a walker. Still complaining of constipation and also swelling of both lower extremities. PHYSICAL EXAMINATION: GENERAL: When I examined her today, she looked pale, but no jaundice, cyanosis, or thyromegaly. No jugular venous distension. No lower limb edema. VITAL SIGNS: Her heart rate was 86, blood pressure 143/70, temperature was 99, respiratory rate was 12, and oxygen saturation was 94%. HEAD, EYES, EARS, NOSE AND THROAT: Normocephalic, atraumatic. NECK: Supple. HEART: Showed normal first and second heart sounds. No gallop, rub or murmur. CHEST: Clear to auscultation. No crepitation or rhonchi. ABDOMEN: Distended, soft, nontender. NEUROLOGIC: She is definitely awake, alert, responding appropriately. All cranial nerves intact. She moves extremities without difficulty. She ambulates with a walker. INS AND OUTS: Her intake over the last 24 hours was 1250, output was 1925. LABORATORY DATA: As of yesterday showed a white cell count 6500, hemoglobin 8.9, hematocrit 27.3, MCV 87 and platelet count of 143,000. Her chemistry showed a serum sodium 142, potassium 4, chloride 108, bicarbonate 25, anion gap of 9, BUN 13, creatinine 1.3, estimated GFR was 40 mL per minute. Her glucose was 94, calcium was 8.2. Her total bilirubin, AST, ALT, alkaline phosphatase are normal. Total protein is 6, albumin 2.4. Her serum iron, TIBC, iron saturation, and serum ferritin are all low consistent with anemia of chronic disease. ASSESSMENT: 1. Sepsis secondary to urinary tract infection for which she is now on Levaquin 750 mg every other day. 2. Elevated D-dimer. CT angio of the chest showing the patient has pulmonary emboli in the right upper lobe. 3. She has had blood loss anemia with positive blood in her stool. 4. She has severe headache and finding some fat in the cerebrospinal fluid. Her most recent CT scan, she does have recent back surgery done by orthopedic surgeon at [facility]. 5. She has had an MRI, which showed no evidence of ischemia or infarct. 6. Constipation. 7. Severe protein-calorie malnutrition with third spacing due to hypoalbuminemia. PLAN: My plan is to start her on Colace and MiraLax, also one dose of Lasix IV today, and hopefully tomorrow discharge her to [facility] to continue with the process of health and rehab. IRINA SINGLETON MD DR: FAUSTO/brina JOB#: [id number] / [id number]
[2018-07-26] MEDS: MONTELUKAST SODIUM 10 MG TABLET. PO SCH (21:33)
[2018-07-26] MEDS: ZOLPIDEM 5 MG TABLET. PO PRN (22:57)
[2018-07-27] MEDS: fentaNYL PF VIAL 100 MCG/2 ML VIAL IV PRN (02:59)
[2018-07-27 03:46] VITALS: BP 157/74
[2018-07-27] MEDS: LEVOTHYROXINE 25 MCG TABLET. PO SCH (05:00)
[2018-07-27] MEDS: oxyCODONE/APAP 10/325 1 TAB TABLET PO PRN (05:14)
[2018-07-27 05:32] LABS: HEMATOCRIT 27.8 % (36.0-47.0); HEMOGLOBIN 8.9 g/dL (12.0-15.5); RED BLOOD COUNT 3.17 x10^6/uL (3.50-5.40); RED CELL DISTRIBUTION WIDTH 15.3 % (11.5-14.5); WHITE BLOOD COUNT 7.9 x10^3/uL (4.0-11.0)
[2018-07-27 05:37] LABS: ALBUMIN 2.4 g/dL (3.4-5.0); ALBUMIN/GLOBULIN RATIO 0.7 (1.0-1.7); CALCIUM 8.2 mg/dL (8.5-10.1); CREATININE 1.3 mg/dL (0.6-1.0); GFR 40.4; POTASSIUM 4.1 mmol/L (3.5-5.1); TOTAL BILIRUBIN 0.2 mg/dL (0.2-1.0); TOTAL PROTEIN 5.9 g/dL (6.4-8.2)
[2018-07-27 05:45] LABS: FREE T4 0.84 ng/dL (0.76-1.46); THYROID STIM HORMONE (TSH) 4.269 uIU/mL (0.358-3.74)
[2018-07-27 06:04] LABS: PROTHROMBIN TIME PATIENT 14.2 SEC (11.7-14.0)
[2018-07-27 07:00] VITALS: BP 143/79
[2018-07-27] MEDS: CITALOPRAM 10 MG TABLET. PO SCH (08:52)
[2018-07-27] MEDS: DULoxetine HCL 30 MG CAPSULE.DR PO SCH (08:52)
[2018-07-27] MEDS: DOCUSATE SODIUM 100 MG CAPSULE. PO SCH (08:53)
[2018-07-27] MEDS: PANTOPRAZOLE 40 MG TABLET.DR. PO SCH (08:53)
[2018-07-27] MEDS: GABAPENTIN 300 MG CAPSULE. PO SCH (08:53)
[2018-07-27] MEDS: LACTOBACILLUS RHAMNOSUS GG 1 CAPSULE. PO SCH (08:53)
[2018-07-27 08:54] VITALS: BP 143/79
[2018-07-27] MEDS: LISINOPRIL 5 MG TABLET. PO SCH (08:54)
[2018-07-27] MEDS ORDERED: DOCU-109 PO (08:57)
[2018-07-27] MEDS ORDERED: POLY17PO29 PO (08:57)
[2018-07-27] MEDS ORDERED: LEVO750T5 PO (08:57)
[2018-07-27] MEDS: ANASTROZOLE 1 MG TABLET PO SCH (08:59)
--- NOTE | 2018-07-27 09:01 | SNU/HH DC ---
DISCHARGE ORDERS DISCHARGE INFORMATION: DISCHARGE DATE: July 27, 2018 FINAL DIAGNOSIS Urinary tract infection pulmonary emboli blood loss anemia CKD HYPERTENSIOM CONDITION ON DISCHARGE: Stable CODE STATUS: Code Status: Full FCI: SNF STAY <30 DAYS: Yes POST DISCHARGE ORDERS: ACTIVITY ORDERS: Resume previous activity WEIGHT BEARING STATUS: Full weight bearing DIET AFTER DISCHARGE: Regular TREATMENT/EQUIPMENT ORDERS: ADAPTIVE EQUIPMENT NEEDED: Walker Physical Therapy For: Evalulation/Treatment Occupational Therapy For: Evaluation/Treatment DISCHARGE MEDICATIONS: Home Meds Active Scripts Levofloxacin (LEVOFLOXACIN) 750 Mg Tablet, 1 TAB PO Q48H for uti for 3 Days, #3 TAB Prov:IRINA SINGLETON MD 07/27/18 Polyethylene Glycol 3350 (MIRALAX) 17 Gm Powd.pack, 1 PACKET PO DAILY for constipation for 30 Days, #30 PACKET 3 Refills Prov:IRINA SINGLETON MD 07/27/18 Docusate Sodium (COLACE) 100 Mg Capsule, 1 CAP PO BID for constipation for 30 Days, #60 CAP Prov:IRINA SINGLETON MD 07/27/18 Reported Medications Prochlorperazine Maleate (Compazine) 10 Mg Tablet, 10 MG PO PRN Q6-8HRS PRN for NAUSEA, TAB 07/22/18 Pantoprazole Sodium (PROTONIX) 20 Mg Tablet.dr, 40 MG PO DAILY for gerd, TAB 07/22/18 Oxycodone/Apap 5-325 (PERCOCET 5-325 MG TABLET ) 1 Each Tablet, 1 TAB PO PRN Q6HRS PRN for PAIN, TAB 0 Refills 07/22/18 Ondansetron Hcl (ZOFRAN) 4 Mg Tablet, 1 TAB PO PRN Q6-8HRS for nausea, #5 TAB 07/22/18 Montelukast Sodium (MONTELUKAST SODIUM TABLET) 10 Mg Tablet, 1 TAB PO DAILY for allergies, #90 TAB 3 Refills 07/22/18 Lisinopril (LISINOPRIL) 10 Mg Tablet, 1 TAB PO DAILY for blood pressure, #90 TAB 3 Refills 07/22/18 Levothyroxine Sodium (SYNTHROID) 75 Mcg Tablet, 1 TAB PO DAILY for replacement, #90 TAB 3 Refills 07/22/18 Levocetirizine Dihydrochloride (LEVOCETIRIZINE DIHYDROCHLORIDE) 5 Mg Tablet, 1 TAB PO DAILY for allergies, #90 TAB 3 Refills 07/22/18 Gabapentin (NEURONTIN) 600 Mg Tablet, 600 MG PO BID for NEUROGENIC PAIN, TAB 07/22/18 Cyclosporine (RESTASIS) 1 Each Droperette, 1 DROP EACHEYE BID for dry eyes, #180 VIAL 3 Refills 07/22/18 Citalopram Hydrobromide (CELEXA) 20 Mg Tablet, 1 TAB PO DAILY for unknown, #30 TAB 2 Refills 07/22/18 Aspirin (ASPIR-LOW) 81 Mg Tablet.dr, 1 TAB PO DAILY for heart, #90 TAB 3 Refills 07/22/18 Discontinued Reported Medications Nitrofurantoin Monohyd/M-Cryst (MACROBID 100 MG CAPSULE) 100 Mg Capsule, 1 CAP PO BID for ??, #14 CAP 07/22/18 IRINA SINGLETON MD July 27, 2018 09:01
--- NOTE | 2018-07-27 10:53 | PDOC ---
Subjective: Subjective: Eating and stooling without issue, says she is to DC to rehab today. She tells me in detail about the horrible night she had on - she had a migraine and wanted to eat regular food - says the nurse called the GI doctor that night but no one called back and she is very upset by this. Also, she says she expressed this frustration prior to EGD on Friday but she does not feel this was appropriately acknowledged. Then says she's had migraines since her lumbar surgery. She says she understood she needed to remain on clear liquids due to concern for bleeding/anemia and also says she understood the need to be NPO prior to EGD last week. She has questions about outpt colonoscopy prep and wants to know all the options. Objective: Vital Signs: Vital Signs Date Time Temp Pulse Resp B/P (MAP) Pulse Ox O2 Delivery O2 Flow Rate FiO2 07/27/18 08:54 97 143/79 07/27/18 07:00 98.1 18 95 Room Air 98.1 07/26/18 20:00 2.0 Labs: Laboratory Tests Test 07/27/18 05:07 White Blood Count 7.9 x10^3/uL Red Blood Count 3.17 x10^6/uL Hemoglobin 8.9 g/dL Hematocrit 27.8 % Mean Corpuscular Volume 88 fL Mean Corpuscular Hemoglobin 28 pg Mean Corpuscular Hemoglobin Concent 32 g/dL Red Cell Distribution Width 15.3 % Platelet Count 142 x10^3/uL Prothrombin Time 14.2 SEC Prothromb Time International Ratio 1.1 Sodium Level 145 mmol/L Potassium Level 4.1 mmol/L Chloride Level 109 mmol/L Carbon Dioxide Level 27 mmol/L Anion Gap 9 Blood Urea Nitrogen 12 mg/dL Creatinine 1.3 mg/dL Estimated GFR (Cockcroft-Gault) 40.4 BUN/Creatinine Ratio 9 Glucose Level 107 mg/dL Calcium Level 8.2 mg/dL Total Bilirubin 0.2 mg/dL Aspartate Amino Transf (AST/SGOT) 15 U/L Alanine Aminotransferase (ALT/SGPT) 10 U/L Alkaline Phosphatase 120 U/L Ammonia 10 mcmol/L Total Protein 5.9 g/dL Albumin 2.4 g/dL Albumin/Globulin Ratio 0.7 Thyroid Stimulating Hormone (TSH) 4.269 uIU/mL Free Thyroxine 0.84 ng/dL Imaging: Brain MRI 07/24 Impression: No acute parenchymal abnormality is seen. EGD 07/24 E--Grade A reflux. G--Deformed fundus c/w prior clay-en-Y with visible suture, otherwise normal. D--Normal to second portion. IMP: Prior gastric surgery Mild reflux. PE: GEN: NAD LUNGS: CTAB HEART: RRR ABD: NABS, S/ND/NT NEURO/PSYCH: A & O 3 A/P: Anemia - stable S/p Clay-en-Y - EGD as above w/ GERD and visible suture CRC screen - ?last in 2005 -- I spent 20 minutes in her room listening to her concerns. DC per primary on PPI. Outpt colonoscopy - our office can arrange. RICKI FLOYD July 27, 2018 10:53
[2018-07-27 11:12] LABS: THYROXINE 5.4 ug/dL (4.5-12.0)
--- NOTE | 2018-07-27 11:28 | NUR ---
NINI following pt. SW phoned and faxed orders to [facility]. Pt will transport via facility arranged transport between [phone]. Pt's choice and rights forms signed by pt and copies on chart. Pt stated she has already notified family and her is currently doing therapy at [facility]. Packet on chart and discussed with RN.
--- NOTE | 2018-07-27 11:35 | NUR ---
Report called to Mary at [facility]. Pt discharged using there transportation.
--- NOTE | 2018-07-27 17:01 | DS ---
DATE OF DISCHARGE: 07/27/2018 HOSPITAL COURSE: The patient is a 73-year-old female patient who was diagnosed with pulmonary emboli in the right upper lobe at [facility]. She was noted to have a positive Hemoccult blood in her stool and her H and H had dropped and therefore she was transferred to [facility] for a possible IVC filter. She was seen by Dr. Bell who did not recommend putting an IVC filter and small pulmonary emboli in her right upper lobe. She was seen also by the manufacturing technician, underwent esophagogastroduodenoscopy which showed that she has esophagitis, but normal stomach and duodenum. She did have urinary tract infection with a growth of more than 100,000 colony forming per mL of Escherichia coli for which she was on meropenem as she was ALLERGIC TO PENICILLIN and we did switch her to oral Levaquin. Her H and H stable around 9 and 27 and Gastroenterology team recommended colonoscopy as an outpatient to further evaluate the positive blood in her stool and a decision was made to discharge her to [facility] to continue the process of rehabilitation. PHYSICAL EXAMINATION: GENERAL: When I saw her this morning, she looked well and was clearly in no apparent respiratory distress, slightly pale, no jaundice, cyanosis, or thyromegaly. No jugular venous distension. No lower limb edema. VITAL SIGNS: Her heart rate was 97, blood pressure was 143/79, temperature was 98.1, respiratory rate was 18 and oxygen saturation was 95%. HEAD, EYES, EARS, NOSE AND THROAT: Showed normocephalic, atraumatic. NECK: Supple. HEART: Showed normal first and second heart sounds. No gallop, rub or murmur. CHEST: Clear to auscultation. No crepitation or rhonchi. ABDOMEN: Distended, soft, nontender. NEUROLOGIC: She is awake, alert, responding appropriately. All cranial nerves intact. She moves extremities without difficulty. She ambulates with a walker. INTAKE AND OUTPUT: Her intake over the last 24 hours was 1500, output was 2850. LABORATORY DATA: Her lab work this morning showed a white cell count 7900, hemoglobin 8.9, hematocrit 27.8, MCV 88 and platelet count of 142,000. Her chemistry showed a serum sodium of 145, potassium 4.1, chloride 109, bicarbonate 27, anion gap of 9, BUN 12, creatinine 1.3, estimated GFR was 40 mL per minute. Her glucose 107, calcium was 8.2. Total bilirubin, AST, ALT, alkaline phosphatase were normal. Her serum iron, TIBC and iron saturation are all low. Her serum ferritin was 50. Her serum ammonia was 10. Total protein was 5.9, albumin 2.4. Her TSH was 4.269, free T4 was normal at 0.24. Her prothrombin time was 14.2, INR 1.1. DISCHARGE MEDICATIONS: She was discharged to [facility] to continue on following medications: Colace 100 mg twice a day, levofloxacin 750 mg every 48 hours for urinary tract infection for 3 more doses, polyethylene glycol 17 grams daily, aspirin 81 mg once a day, citalopram hydrobromide for Celexa 20 mg once a day, Restasis 1 drop to each eye twice a day, gabapentin 600 mg twice a day, Claritin 5 mg once a day, levothyroxine sodium for Synthroid 75 mcg once a day, lisinopril 10 mg once a day, montelukast 10 mg at bedtime, ondansetron 4 mg every 6-8 hours, oxycodone/APAP 5/325 one tablet every 6 hours as needed, Protonix 40 mg once a day and Compazine 10 mg every 6-8 hours as needed for nausea and vomiting. FINAL DISCHARGE DIAGNOSES: 1. Sepsis secondary to urinary tract infection for which she is now on Levaquin 750 mg every other day for 3 more doses. 2. Elevated D-dimer. CT angio of the chest showed the patient has pulmonary emboli in the right upper lobe, which are small. 3. She has had blood loss anemia with blood in her stool. 4. She has severe headache and finding of some fat in the cerebrospinal fluid on her most recent CT scan done at [facility]. She has recent back surgery done by orthopedic surgeon at [facility]. 5. An MRI, which showed no evidence of ischemia or infarct, but showed the same fatty changes in the bilateral ventricular horn. 6. Constipation. 7. Severe protein calorie malnutrition, third spacing due to hypoalbuminemia. IRINA SINGLETON MD DR: FAUSTO/brina JOB#: [id number] / [id number]
== END 2018-07-27 11:50 | DRG 871 ==
LOC: 1 WEST ICU 18:10 → 6 SOUTH 07-23 16:24
PROVIDERS: ADMIT Internal Medicine; ATTEND Internal Medicine
PROC: 0DJ08ZZ Inspection of Upper Intestinal Tract, Via Natural or Artificial Opening Endoscopic (ICD-10-PCS; principal; 2018-07-24 13:30)
DX: A41.9 Sepsis, unspecified organism (principal); E43 Unspecified severe protein-calorie malnutrition; I26.99 Other pulmonary embolism without acute cor pulmonale; K57.91 Diverticulosis of intestine, part unspecified, without perforation or abscess with bleeding; R47.01 Aphasia; N39.0 Urinary tract infection, site not specified; E03.9 Hypothyroidism, unspecified; D50.0 Iron deficiency anemia secondary to blood loss (chronic); G43.909 Migraine, unspecified, not intractable, without status migrainosus; E66.01 Morbid (severe) obesity due to excess calories; I12.9 Hypertensive chronic kidney disease with stage 1 through stage 4 chronic kidney disease, or unspecified chronic kidney disease; G89.29 Other chronic pain; K21.0 Gastro-esophageal reflux disease with esophagitis; N18.9 Chronic kidney disease, unspecified; K59.00 Constipation, unspecified; F32.9 Major depressive disorder, single episode, unspecified; F41.9 Anxiety disorder, unspecified; Z87.820 Personal history of traumatic brain injury; Z88.0 Allergy status to penicillin; Z90.13 Acquired absence of bilateral breasts and nipples; Z90.49 Acquired absence of other specified parts of digestive tract; Z98.84 Bariatric surgery status; Z92.21 Personal history of antineoplastic chemotherapy; Z85.3 Personal history of malignant neoplasm of breast; Z79.899 Other long term (current) drug therapy; Z87.81 Personal history of (healed) traumatic fracture; Z68.35 Body mass index [BMI] 35.0-35.9, adult
CPT/HCPCS: 36415; 43235; 70551; 80048; 80053; 82140; 82607; 82728; 83540; 83550; 84436; 84439; 84443; 84480; 85007; 85025; 85027; 85610; 86850; 86900; 86901; 86920; J0692; J1940; J2704; J3010; J7030; Q0164; 92523; 97530

== ENCOUNTER → 2018-10-21 | Outpatient (CLI) | payer MEDICARE, OTHER ==
[~2018-10-21] MED LIST: ASPI81TA50 PO; CITA20TA9 PO; CYCL1DRO EACHEYE; DOCU-109 PO; GABA600T PO; LEVO5TAB2 PO; LEVO750T5 PO; LEVO75TA PO; LISI10TA2 PO; MONT10TA49 PO; NITR100C62 PO; ONDA4TAB7 PO; OXYC1TAB15 PO; PANT20TA2 PO; POLY17PO29 PO; PROC10TA57 PO
--- NOTE | 2018-10-21 14:43 | CARD ---
MR#: [id number] Date of Study: 10/21/2018 Ordering Physician: SILAS IRAHETA, Referring Physician: SILAS IRAHETA Tech: Joyce Craig RDCS APPROVED REPORT EXAM: Two-dimensional and M-mode echocardiogram with Doppler and color Doppler. Other Information Quality : Good INDICATION Pre-Op RISK FACTORS Obesity 2D DIMENSIONS RVDd2.5 (2.9-3.5cm)Left Atrium(2D)3.0 (1.6-4.0cm) IVSd0.9 (0.7-1.1cm)Aortic Root(2D)2.5 (2.0-3.7cm) LVDd4.1 (3.9-5.9cm)LVOT Diameter2.0 (1.8-2.4cm) PWd0.9 (0.7-1.1cm)LVDs3.0 (2.5-4.0cm) FS (%) 30.0 %SV37.2 ml LVEF(%)60.0 (>50%) Aortic Valve AoV Peak Chance.133.2cm/sAoV VTI22.7cm AO Peak GR.7.1mmHgLVOT Peak Chance.121.2cm/s AO Mean GR.4mmHgAVA (VMAX)2.76cm2 FAISAL (VTI)2.80cm2 Mitral Valve MV E Evigtmev88.9cm/sMV DECEL FIUY464bt MV A Seizpfko031.3cm/sE/A Ratio0.6 Pulmonary Valve PV Peak Hvhoxapr954.4cm/s Pulmonary Vein S1 Ehyediul63.6cm/sD2 Emskycou57.5cm/s LEFT VENTRICLE The left ventricle is normal size. There is normal left ventricular wall thickness. The left ventricu lar systolic function is normal and the ejection fraction is within normal range. The Ejection Fracti on is 55-60%. There is normal LV segmental wall motion. Transmitral Doppler flow pattern is Grade I-a bnormal relaxation pattern. RIGHT VENTRICLE The right ventricle is normal size. The right ventricular systolic function is normal. ATRIA The left atrium size is normal. The right atrium size is normal. The interatrial septum is intact wit h no evidence for an atrial septal defect or patent foramen ovale as noted on 2-D or Doppler imaging. AORTIC VALVE The aortic valve is mildly to moderately sclerotic. Doppler and Color Flow revealed no significant ao rtic regurgitation. There is no significant aortic valvular stenosis. MITRAL VALVE The mitral valve is calcified but opens well. There is no evidence of mitral valve prolapse. There is no mitral valve stenosis. Doppler and Color Flow revealed no mitral valve regurgitation noted. TRICUSPID VALVE The tricuspid valve is normal in structure and function. Doppler and Color Flow revealed no tricuspid valve regurgitation noted. There is no tricuspid valve stenosis. PULMONIC VALVE The pulmonic valve is not well visualized. Doppler and Color Flow revealed no pulmonic valvular regur gitation. There is no pulmonic valvular stenosis. GREAT VESSELS The aortic root is normal in size. The ascending aorta is not well seen. The IVC is normal in size an d collapses >50% with inspiration. PERICARDIAL EFFUSION There is no evidence of significant pericardial effusion. Critical Notification Critical Value: No <Conclusion> The left ventricular systolic function is normal and the ejection fraction is within normal range. Th e Ejection Fraction is 55-60%. There is normal LV segmental wall motion. Signed by : Jam Rogers, Electronically Approved : 10/21/2018 14:43:14
== END | disposition home or self-care (01) ==
LOC: ECHO 13:18
PROVIDERS: ATTEND Internal Medicine Cardiovascular Disease
DX: Z01.810 Encounter for preprocedural cardiovascular examination (principal); I08.0 Rheumatic disorders of both mitral and aortic valves
CPT/HCPCS: 93306

== ENCOUNTER → 2018-10-29 | Outpatient (CLI) | payer MEDICARE, OTHER ==
[~2018-10-29] MED LIST changes: +REGADENOSON 0.4 MG/5 ML DISP.SYRIN. IV ONE
--- NOTE | 2018-10-30 14:49 | RAD ---
MR#: [id number] Date of Study: 10/29/2018 Ordering Physician: SILAS IRAHETA, Referring Physician: HERMILA PRASAD Tech: ADAMS Simpson, EDE Gonzalez) (N) APPROVED REPORT Test Type: Pharmacological Stress Nurse/Tech: Yessy López RN Test Indications: pre op eval. Cardiac History: Hypertension, chemotherapy Medications: See Electronic Medical Record Medical History: See Electronic Medical Record Resting ECG: SR with PAC'S and BBB Resting Heart Rate: 88 bpm Resting Blood Pressure: 109/68mmHg Pretest Chest Pain: No chest pain Nurse/Tech Notes S1,S2 and lungs clear to auscultation. Consent: The procedure was explained to the patient in lay terms. Informed consent was witnessed. [place] eout was entered into [employer]. History and Stress Test performed by ADAMS Simpson, EDE (R) (N) Pharm. Details Pharmacologic stress testing was performed using 0.4mg per 5ml of regadenoson given intravenously ove r 7-10 seconds. Stress Symptoms dizziness,flushing POST EXERCISE Reason for Termination: Infusion complete Target HR: No Max HR: 105 bpm Exercise duration: 6 min:sec, Stage Max Blood Pressure: 146/56mmHg Blood Pressure response to exercise: Abnormal increase in blood pressure during stress. Heart Rate response to exercise: WNL Chest Pain: No. Arrhythmia: Yes. PAC'S ST Change: No. INTERPRETATION Stress EKG Conclusion: Baseline EKG showed sinus rhythm with RBBB. No ischemic changes at peak stres s. No arrhythmias. Imaging Protocol IMAGE PROTOCOL: Rest Tc-99m/stress Tc-99m 1 day Rest: Stress: Viability: Radiopharm.Tc99m KhpndojvvOp99l Sestamibi Dose10.3mCi 31mCi Img Date 10/29/2018 10/29/2018 Inj-Img Yrgb39ghp. 60min. Rest Admin Site:IV - Left AntecubitalAdministrator:RT Amie (R)(N) Stress Admin Site: IV - Left AntecubitalAdministrator: Lia Sanabria, RT (R)(N) STRESS DATA End Diast. Vol.38.0mlAv. Heart Mbwm591.0bpm LVEDV index BSA19.0mlCardiac Output0.0L/min End Syst. Vol.0.0mlCO Index BSA0.0L/min LVESV index BSA0.0mlMyocardial Mass76.0g Eject. Zerxwsov636.0% Stress Scores Regional WT0.00Summed WT0.00 Regional WM0.00Summed WM0.00 Study quality was good. Left Ventricular size was Normal at Rest and Stress. Lung uptake was . Left Ventricular ejection fraction is >80%. The rest and stress images show normal perfusion, normal contraction and thickening. LV Perf. Quant 17 Seg. SSS0.00 17 Seg. SRS3.00 17 Seg. SDS0.00 Stress Defect Extent (% LAD)0.00Rest Defect Extent (% LAD)0.00Rev. Defect Extent (% LAD)0.00 Stress Defect Extent (% LCX) 0.00Rest Defect Extent (% LCX)0.00Rev. Defect Extent (% LCX)0.00 Stress Defect Extent (% RCA)0.00Rest Defect Extent (% RCA)4.40Rev. Defect Extent (% RCA)0.00 Stress Defect Extent (% CHELLE)0.00Rest Defect Extent (% CHELLE)1.10Rev. Defect Extent (% CHELLE)0.00 Conclusion 1. Regadenoson cardioisotope stress test did not show any evidence of ischemia or infarct. 2. Normal left ventricular systolic function with ejection fraction calculated at >80%. 3. Low risk for cardiac events. Signed by : Silas Iraheta, Electronically Approved : 10/30/2018 14:49:04
== END | disposition home or self-care (01) ==
LOC: NM 10:00
PROVIDERS: ATTEND Internal Medicine Cardiovascular Disease
DX: Z01.818 Encounter for other preprocedural examination (principal); I10 Essential (primary) hypertension; Z79.01 Long term (current) use of anticoagulants; Z92.3 Personal history of irradiation; Z88.0 Allergy status to penicillin; Z88.5 Allergy status to narcotic agent
CPT/HCPCS: 78452; 93017; A9500; J2785

== ENCOUNTER → 2019-01-29 | Outpatient (CLI) | payer MEDICARE, OTHER ==
[~2019-01-29] MED LIST changes: +ANAS1TAB47 PO; +DULO20CA PO; +GADOTERATE 5 MMOL/10ML VIAL. IVP ONE; +HYDR-3135 PO; +LEVO5TAB29 PO; +LORA0.5T96 PO; +PROM25TA10 PO; -REGADENOSON 0.4 MG/5 ML DISP.SYRIN. IV ONE; +ZOLP10TA4 PO
--- NOTE | 2019-01-29 16:54 | KCIC ---
MRI Brain with and without contrast History: Otalgia, ear pain bilaterally, dizziness, nausea, lightheaded Technique: Multiplanar, multi sequential pre and postcontrast MR imaging was performed of the brain, also dedicated images of the internal auditory canals obtained. Comparison: July 24, 2018 Findings: There is no evidence of recent infarct or cytotoxic edema. The ventricles, sulci, and cisterns are within normal limits in size and configuration. There is no significant midline shift, intraaxial mass effect, or focal abnormal extra-axial fluid collection. There are again some foci of fat signal intensity of the frontal horns bilaterally, new small focus in the right lateral ventricle in the temporal region, also some small foci along the left cerebellar folia present previously. There is no new significant signal abnormality of the brain parenchyma. There is no nodular parenchymal or leptomeningeal enhancement. There is preservation of the major intracranial flow-voids at the skull base. The cerebellar tonsils are normal in location. There is no significant abnormality of the pineal gland or pituitary gland. There is patchy mild ethmoid air cell mucosal thickening greater on the left. There is patchy mild fluid of left mastoid air cells.There is preserved marrow signal of the clivus. There has been lens surgery bilaterally. There is no nodular enhancement of the cerebellopontine angles or the internal auditory canals. Impression: 1. There is no new significant intracranial abnormality. 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 Electronically signed by: Oscar Meyer MD (01/29/2019 4:51 PM) [facility]
== END | disposition home or self-care (01) ==
LOC: KCIC MRI 14:22
PROVIDERS: ATTEND Physician Assistant Medical
DX: H92.03 Otalgia, bilateral (principal); J34.89 Other specified disorders of nose and nasal sinuses
CPT/HCPCS: 70553; A9575

== ENCOUNTER → 2020-06-23 | Outpatient (CLI) | payer MEDICARE, OTHER ==
[2019-12-16 11:00] VITALS: BP 152/68
[~2020-06-23] MED LIST changes: +BENZ-8 PO; +BIOT5000 PO; +DULO60CA45 PO; +FERR-3 PO; -GADOTERATE 5 MMOL/10ML VIAL. IVP ONE; -LEVO75TA PO; +LEVO75TA90 PO; +LISI10TA16 PO; -LISI10TA2 PO; +MECO10005 PO; +TIZA4TAB8 PO; +[UNRECOGNIZED DRUG - CODE] PO
--- NOTE | 2020-06-23 17:53 | CARD ---
MR#: [id number] Date of Study: 06/23/2020 Ordering Physician: SILAS IRAHETA, Referring Physician: SILAS IRAHETA, Tech: Edith Doss, [facility] APPROVED REPORT EXAM: Two-dimensional and M-mode echocardiogram with Doppler and color Doppler. Other Information Quality : AverageHR: 90bpm INDICATION Pre-Op RISK FACTORS Hypertension 2D DIMENSIONS RVDd2.2 (2.9-3.5cm)Left Atrium(2D)3.0 (1.6-4.0cm) IVSd1.1 (0.7-1.1cm)Aortic Root(2D)2.5 (2.0-3.7cm) LVDd4.6 (3.9-5.9cm)LVOT Diameter1.9 (1.8-2.4cm) PWd0.9 (0.7-1.1cm)LVDs2.4 (2.5-4.0cm) FS (%) 47.4 %SV75.3 ml Aortic Valve AoV Peak Chance.199.4cm/sAoV VTI44.0cm AO Peak GR.15.9mmHgLVOT Peak Chance.119.3cm/s LVOT VTI 23.73cmAO Mean GR.9mmHg FAISAL (VMAX)1.29to2QPX (VTI)1.52cm2 Mitral Valve MV E Osezymyn791.1cm/sMV DECEL VSYH988mu MV A Tcstktzg461.9cm/sMV OTU76fg E/A Ratio0.7MVA (PHT)2.38cm2 TDI E/Lateral E'11.0E/Medial E'12.8 Pulmonary Valve PV Peak Ahajibuh556.8cm/sPV Peak Grad.5mmHg Tricuspid Valve TR P. Qabgplfh127vu/sRAP VOMBQTQQ4abFy TR Peak Gr.85ouPgIDQY94oyXg Pulmonary Vein S1 Mcqryktw77.8cm/sD2 Yzzrevgo47.3cm/s PVa cfyhftnf55lnwd LEFT VENTRICLE The left ventricle is normal size. There is normal left ventricular wall thickness. The left ventricu lar systolic function is normal and the ejection fraction is within normal range. The Ejection Fracti on is 55-60%. There is normal LV segmental wall motion. Transmitral Doppler flow pattern is Grade I-a bnormal relaxation pattern. RIGHT VENTRICLE The right ventricle is normal size. There is normal right ventricular wall thickness. The right ventr icular systolic function is normal. ATRIA The left atrium size is normal. The right atrium size is normal. The interatrial septum is intact wit h no evidence for an atrial septal defect or patent foramen ovale as noted on 2-D or Doppler imaging. AORTIC VALVE The aortic valve is calcified but opens well. Doppler and Color Flow revealed trace aortic regurgitat ion. There is mild aortic valvular stenosis. Calculated aortic valve area is 1.28 cm2 with maximum pr essure gradient of 21 mmHg and mean pressure gradient of 14 mmHg. MITRAL VALVE The mitral valve is normal in structure and function. There is no evidence of mitral valve prolapse. There is no mitral valve stenosis. Doppler and Color-flow revealed trace mitral regurgitation. TRICUSPID VALVE The tricuspid valve is normal in structure and function. Doppler and Color Flow revealed trace tricus pid regurgitation with an estimated PAP of 36 mmHg. There is no tricuspid valve stenosis. PULMONIC VALVE The pulmonic valve is not well visualized. Doppler and Color Flow revealed trace pulmonic valvular re gurgitation. GREAT VESSELS The aortic root is normal in size. The IVC is normal in size and collapses >50% with inspiration. PERICARDIAL EFFUSION There is no evidence of significant pericardial effusion. Critical Notification Critical Value: No <Conclusion> The left ventricle is normal size. The left ventricular systolic function is normal and the ejection fraction is within normal range. The Ejection Fraction is 55-60%. Doppler and Color Flow revealed trace aortic regurgitation. There is mild aortic valvular stenosis. Calculated aortic valve area is 1.28 cm2 with maximum pressure gradient of 21 mmHg and mean pressure gradient of 14 mmHg. Doppler and Color-flow revealed trace mitral regurgitation. Doppler and Color Flow revealed trace tricuspid regurgitation with an estimated PAP of 36 mmHg. Signed by : Nikhil Cuevas MD Electronically Approved : 06/23/2020 17:53:15
== END ==
LOC: ECHO 12:36
PROVIDERS: ATTEND Internal Medicine Cardiovascular Disease
DX: Z01.810 Encounter for preprocedural cardiovascular examination (principal); I06.1 Rheumatic aortic insufficiency
CPT/HCPCS: 93306

== ENCOUNTER → 2021-04-24 | Outpatient (CLI) | payer MEDICARE, OTHER ==
[2019-12-16 11:00] VITALS: BP 152/68
--- NOTE | 2021-04-24 16:23 | KCIC ---
EXAM: Lumbar spine MRI without contrast. HISTORY: Lower back pain and lower extremity radiculopathy. TECHNIQUE: Multiplanar, multisequence magnetic resonance imaging of the lumbar spine was performed wi thout contrast. COMPARISON: 10/27/2017 FINDINGS: The exam is significantly limited due to new metallic fusion instrumentation artifact at L3 and L4. There are disc space fusion devices at L4-L5 and L5-S1, stable in appearance. There is a new complicated fluid collection within the laminectomy decompression spaces at L3-L5. This measures chela roximately 7 cm craniocaudally by 5 cm transversely by 2 cm anteroposteriorly. There is lumbar scoliosis and multilevel degenerative listhesis. There is multilevel endplate remodel ing. The conus terminates at L1-L2. There is a tiny simple cyst within the superior left kidney. Foll ow-up is not routinely performed for simple cysts. There is no suspicious osseous lesion. There is no fracture. There is edema within the posterior back soft tissues, a component of which is dependent i n etiology. At L1-L2, there is a disc bulge and endplate remodeling. There is mild bilateral facet arthropathy. T here is minimal retrolisthesis. There is mild bilateral foraminal stenosis. At L2-L3, there is metallic instrumentation artifact obscuring the neural foramina and majority of th e central canal. At L3-L4, there is metallic instrumentation artifact obscuring the neural foraminal and central canal . At L4-L5, there is a disc space fusion device and there are laminectomy changes. The right greater th an left neural foramina are obscured due to metallic is rotation artifact. No central canal stenosis is seen. At L5-S1, there is a disc space device and there are laminectomy changes. The nerve roots are distrib uted peripherally within the thecal sac. There is mild right foraminal stenosis. IMPRESSION: 1. Significantly limited exam due to metallic instrumentation artifact at L3-L4. The instrumentation may better assessed radiographically or with CT. 2. Fluid collection within laminotomy decompression spaces from L3 to L5, likely due to a postoperati ve seroma. This is new compared to the prior study. The possibility of a pseudomeningocele communicat ing with the thecal sac is not excluded at the L3-L4 level. 3. Multilevel degenerative change, described in detail above. 4. Peripheral distribution of the nerve roots at the lumbosacral junction, increased compared to the prior study. 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 Electronically signed by: Lia Overton MD (04/24/2021 4:20 PM) [id number]
== END ==
LOC: KCIC MRI 12:58
PROVIDERS: ATTEND Physician Assistant Medical
DX: M47.816 Spondylosis without myelopathy or radiculopathy, lumbar region (principal); N28.1 Cyst of kidney, acquired; R60.0 Localized edema; M51.26 Other intervertebral disc displacement, lumbar region; M48.07 Spinal stenosis, lumbosacral region; M41.86 Other forms of scoliosis, lumbar region; M43.16 Spondylolisthesis, lumbar region; Z98.1 Arthrodesis status
CPT/HCPCS: 72148